=== PATIENT | female | born 1995 | race Two or more races ===

== ENCOUNTER → 2020-03-08 | Emergency (ER) | payer OTHER ==
[~2020-03-08] VITALS: Ht 157.5 cm; Wt 63.5 kg
[~2020-03-08] MED LIST: MORPHINE SULF INJ 2 MG/ML SYRINGE 1ML IV ONE; PROMETHAZINE HCL 25 MG/ML 1ML IV ONE; SODIUM CHLORIDE 0.9% 1,000 ML IV ONE; cefTRIAXone 1GM/50ML D5W 50 ML IV ONE; metroNIDAZOLE 500MG/100ML 100 ML IV ONE
[2020-03-08 07:09] LABS: Basophils # (auto) 0.1 10 ^3/uL (0-0.2); Basophils % (auto) 0.7 % (0.0-2.0); Eosinophils # (auto) 0 10 ^3/uL (0-0.8); Eosinophils % (auto) 0.3 % (0.0-7.0); Hematocrit 40.3 % (36.0-46.0); Hemoglobin 13.5 g/dL (12.2-16.2); Lymphocytes # (auto) 2.7 10 ^3/uL (0.4-5.4); Mean Corpuscular Hgb Conc. 33.5 g/dL (32.0-36.0); Mean Corpuscular Volume 92.5 fL (80.0-100.0); Monocytes # (auto) 1.1 10 ^3/uL (0-1.3); Monocytes % (auto) 6.8 % (0.0-12.0); Neutrophils # (auto) 12.7 10 ^3/uL (1.6-8.6); Neutrophils % (auto) 76.2 % (37.0-80.0); Nucleated Red Blood Cells % 0.2 %; Platelet Count (auto) 273 10^3/uL (140-450); Red Blood Cells 4.36 10^6/uL (4.0-5.20); Red Cell Distribution Width 12.6 % (11.8-14.3); White Blood Cell 16.6 10^3/uL (4.4-10.8)
[2020-03-08 07:32] LABS: Calcium 9.2 mg/dL (8.5-10.1)
[2020-03-08 07:36] LABS: BUN/Creatinine Ratio 12.2; Bilirubin, Total 0.4 mg/dL (0.2-1.0); Total Protein 7.6 g/dL (6.4-8.2)
[2020-03-08 08:57] LABS: Urine Bacteria NONE SEEN /hpf (None Seen); Urine Blood 3+ /uL (Negative); Urine Hyaline Cast FEW /lpf (0 - 2); Urine Mucus FEW (None Seen); Urine Specific Gravity 1.019 (1.001-1.035); Urine WBC 3 /hpf (0 - 5)
[2020-03-08 10:01] VITALS: BP 97/54
== END | disposition home or self-care (01) ==
LOC: ER 06:39
DX: N13.30 Unspecified hydronephrosis (principal); N83.8 Other noninflammatory disorders of ovary, fallopian tube and broad ligament; D72.829 Elevated white blood cell count, unspecified; E86.0 Dehydration
CPT/HCPCS: 36415; 74176; 76830; 76856; 80053; 81001; 81025; 84702; 85025; 96365; 96375; 99285; J0696; J2270; J2550; J3490